=== PATIENT | female | born 1980 | race Two or more races ===

== ENCOUNTER 2024-11-21 10:35 | Emergency (ER) | payer BC, SELFPAY ==
--- NOTE | 2024-11-21 10:42 | EKG_ITS ---
[facility] Test Date: 2024-11-21 Pat Name: RENATA NULL Department: Room: - Gender: Female [employer] Supervisor: : 1980 Requested By: ED Temporary Provider Order Number: [id number] Reading MD: ED Temporary Provider Measurements Intervals [place] Rate: 84 P: 43 MT: 136 QRS: 37 QRSD: 81 T: 32 QT: 323 QTc: 382 Interpretive Statements SINUS RHYTHM NONSPECIFIC T-WAVE ABNORMALITY No previous ECG available for comparison /store/S0/[id number].pdf
[2024-11-21 10:49] VITALS: BP 156/104; PULSE 79; RESP 16; TEMP 37.2; O2SAT 98; BMI 27.4
--- NOTE | 2024-11-21 11:08 | XR_ITS ---
Examination: CT brain head without contrast. 2-D sagittal coronal reconstructions Date and time of exam:November 21, 2024 1207 hours INDICATIONS: Onset facial numbness today CTDI: vol (mGy):46.9 DLP: (mGycm):896 Technique: Multiple CT axial sections of the brain have been obtained, 5 mm slice thickness. Contrast has not been administered. 2-D sagittal, coronal reconstructions have been obtained Low dose protocols were performed. One or more of the following dose reduction techniques were used; automated exposure control, adjustment of the mA and/or KV according to patient size, use of iterative reconstruction technique. Findings: No significant ventricular enlargement. Intra-axial or extra-axial hemorrhage density is not seen. No mass effect or midline shift Basal cisterns are not remarkable. Fourth ventricle is midline. Cranial vault intact. Impression: Negative for acute hemorrhage, mass effect or midline shift Advise clinical correlation follow-up accordingly
--- NOTE | 2024-11-21 11:08 | XR_ITS ---
Examination: PA lateral chest 2 views TECHNIQUE: Upright PA lateral chest 2 views Date and time: November 21, 2024 1121 hours INDICATIONS: Numbness in the face 2 days FINDINGS: Normal heart size. Lungs are clear. The osseous structures are intact IMPRESSION: No active disease
--- NOTE | 2024-11-21 11:08 | PD.EDRME ---
Rapid Medical Screening Exam RME Arrival date/time: 11/21/24 10:35 43-year-old female with no known medical history presents to the emergency room with a chief complaint of numbness to her lip, lightheadedness, dizziness, chest pain and blurry vision x 2 days I have greeted and performed a focused initial assessment of this patient. A comprehensive ED assessment and evaluation of the patient, analysis of all test results, and completion of the medical decision making process will be conducted by additional ED providers. Chief Complaint: General Adult/Misc Complain Time Seen by Provider: 11/21/24 10:56 Vital signs: Vital Signs Temperature 98.9 F 11/21/24 10:49 Pulse Rate 79 11/21/24 10:49 Respiratory Rate 16 11/21/24 10:49 Blood Pressure 156/104 H 11/21/24 10:49 Pulse Oximetry (%) 98 11/21/24 10:49 Oxygen Delivery Method Room Air 11/21/24 10:49 Vital signs reviewed by provider: Yes
[2024-11-21 11:42] LABS: Basophils # (Auto) 0.1 Thou/mm3 (0.0-0.2); Basophils % (Auto) 1 % (0-2.5); Eosinophils # (Auto) 0.1 Thou/mm3 (0.0-0.5); Eosinophils % (Auto) 1 % (0-10); Hemoglobin 13.1 g/dL (12.0-16.0); Immature Granulocytes % (Auto) 0 % (0-0); Immature Granulocytes Auto 0.02 Thou/mm3 (0.00-0.00); Lymphocytes # (Auto) 2.3 Thou/mm3 (1.0-4.8); Lymphocytes % (Auto) 30 % (10-50); Mean Corpuscular HGB Conc 34.5 g/dl (31.0-37.0); Mean Corpuscular Hemoglobin 29.4 pg (25.0-35.0); Mean Corpuscular Volume 85 fL (80-100); Monocytes # (Auto) 0.6 Thou/mm3 (0.0-0.8); Monocytes % (Auto) 8 % (0-12); Neutrophils # (Auto) 4.8 Thou/mm3 (1.8-7.7); Neutrophils % (Auto) 61 % (37-80); Nucleated Red Blood Cell % 0 /100 WBC (0); Platelet Count 360 Thou/mm3 (140-440); RDW Standard Deviation 43.9 fL (36.4-46.3); Red Blood Count 4.46 Miln/mm3 (4.00-5.20); White Blood Count 7.9 Thou/mm3 (3.6-11.0)
[2024-11-21 11:59] LABS: Alanine Aminotransferase 13 U/L (10-49); Albumin/Globulin Ratio 1.5 (1.2-2.2); Alkaline Phosphatase 94 U/L (46-116); Anion Gap 8 (7-16); Aspartate Amino Transferase 21 U/L (0-34); B-Type Natriuretic Peptide < 20 pg/mL (0-100); BUN/Creatinine Ratio 16 Ratio (12-20); Bilirubin,Total 0.4 mg/dL (0.3-1.2); Blood Urea Nitrogen 14 mg/dL (9-23); Calcium 9.6 mg/dL (8.3-10.6); Calcium (Corrected) 9.6 mg/dL (8.5-10.1); Carbon Dioxide 26.1 mMol/L (20.0-31.0); Chloride 102 mMol/L (98-107); Creatinine (Component) 0.9 mg/dL (0.6-1.3); Estimated Creatinine Clearance 74.4 mL/min (>60); Globulin 3.4 gm/dL (2.3-3.5); Glucose 91 mg/dL (74-106); Osmolality,Calculated 272 (275-295); Potassium 3.8 mMol/L (3.4-5.1); Sodium 136 mMol/L (136-145); Total Protein 8.4 gm/dL (5.7-8.2); Troponin I < 0.002 ng/mL (0.0-0.045); eGFR > 60 See Note
[2024-11-21 11:59] LABS: Collection Type, Urine Clean Catch
[2024-11-21 12:13] LABS: Bilirubin,Urine Negative (Negative); Blood,Urine 2+ (Negative); Clarity,Urine Turbid (Clear/Hazy); Color,Urine Lt-Yellow (Lt Yel-Yel); Glucose, Urine Negative (Negative); Ketones,Urine Negative (Negative); Leukocyte Esterase,Urine Positive (Negative); Nitrite,Urine Positive (Negative); PH,Urine 5.5 (5.0-7.0); Protein,Urine Negative (Neg - Trace); RBC,Urine 4 /hpf (0-3); Specific Gravity,Urine 1.026 (1.001-1.035); Squamous Epithelial Cell,Urine 11 /hpf (0-5); Urobilinogen,Urine Negative mg/dL (0.0-1.0); WBC,Urine 7 /hpf (0-5)
[2024-11-21] MEDS: LORazepam 0.5 MG TABLET PO (12:36)
--- NOTE | 2024-11-21 13:28 | PD.EDADULT ---
ED General RME/HPI General Chief complaint: General Adult/Misc Complain Stated complaint: NUMBNESS TO LIPS, CHEST TIGHTNESS Time Seen by Provider: 11/21/24 10:56 Arrival date/time: 11/21/24 10:35 RME / HPI RME / HPI narrative: 43-year-old female with no known medical history presents to the emergency room with a chief complaint of numbness to her lip, lightheadedness, dizziness, chest pain and bilateral upper extremity numbness since yesterday, lasting for 1 to 2 hours, it comes and goes. Patient denies any headache. Denies any slurring speech denies any upper or lower extremity weakness. Patient is ambulatory. Denies any head trauma or fall denies any fever. Related Data Allergies Allergy/AdvReac Type Severity Reaction Status Date / Time No Known Allergies Allergy Unknown Uncoded 05/06/22 13:25 Review of Systems Review of Systems Narrative Review of Systems: Review of system reviewed and within normal limits except mentioned in HPI ED Exam Narrative Physical exam: VITAL SIGNS: Reviewed. GENERAL APPEARANCE: Alert and interactive, follows commands, no acute distress, HEAD AND FACE: Non-traumatic. ENT: PERRL, pink conjunctivitis, eyelid no trauma, Mucous membrane moist. NECK: Supple, nontender, no nuchal rigidity. CHEST: No tenderness, no crepitus, no paradoxical movement, no retractions. LUNGS: Clear, well ventilated, symmetric, no rales, no wheezing, no ronchi, no stridor, good breath sounds bilaterally. HEART: Regular rate, regular rhythm, no murmur, no gallops. ABDOMEN: Soft, positive bowel sounds, nondistended, no guarding, nontender, no rebound, no masses, RECTAL: Deferred. GENITAL: Deferred. NEUROLOGICAL: Gross motor function intact sensory function intact, Appropriate for age. MUSCULOSKELETAL: low back nontender, full range of motion. EXTREMITIES: Nontender, full range of motion. SKIN: Color pink, dry, no rash, no lacerations, no abrasions, no contusions. LYMPHATICS: Deferred. Course Quality Measures none Orders Category Date Time Status EKG (ED ONLY) *Do not use* NOW Care 11/21/24 10:[address] head/brain wo con Stat Exams 11/21/24 11:08 Completed EKG (ED Only) Stat Exams 11/21/24 10:42 Draft XR chest 2V Stat Exams 11/21/24 11:08 Completed B-Type Natriuretic Peptide Stat Lab 11/21/24 11:16 Completed CBC Stat Lab 11/21/24 11:16 Completed Comprehensive Metabolic Panel Stat Lab 11/21/24 11:16 Completed Magnesium Stat Lab 11/21/24 11:16 Completed Troponin I Stat Lab 11/21/24 11:16 Completed Urinalysis Stat Lab 11/21/24 11:45 Completed LORazepam [Ativan] Med 11/21/24 12:03 Discontinued 0.5 mg PO X1 ONE Vital Signs Vital signs: Vital Signs Temperature 98.9 F 11/21/24 10:49 Pulse Rate 79 11/21/24 10:49 Respiratory Rate 16 11/21/24 10:49 Blood Pressure 156/104 H 11/21/24 10:49 Pulse Oximetry (%) 98 11/21/24 10:49 Oxygen Delivery Method Room Air 11/21/24 10:49 Discharge Plan Plan Patient Disposition: HOME (Self Care) Discharge Disposition comment: Stable Prescriptions/Referrals Referrals: No Primary/Family,Physician [Primary Care Provider] - In 1 week Problem List Clinical Impression: Paresthesia, Anxiety Patient/Caregiver Discharge Instructions Discharge Activity: activity as tolerated Education Materials: ED Paraesthesias Additional Instructions: Thank you for the opportunity for serving you today. You are stable for discharged . You are advised to: Follow-up with your PCP in 1 to 2 days Return to ED for worsening of symptoms Print Language: [place] Stand Alone Forms: [facility]i Award Info., Patient Portal Info Letter PA/SHERRI Supervising Physician PA/SHERRI Supervising Physician: MD Dagoberto [facility] Narrative MDM hospital course: 43-year-old female with no known medical history presents to the emergency room with a chief complaint of numbness to her lip, lightheadedness, dizziness, chest pain and bilateral upper extremity numbness since yesterday, lasting for 1 to 2 hours, it comes and goes. Patient denies any headache. Denies any slurring speech denies any upper or lower extremity weakness. Patient is ambulatory. Denies any head trauma or fall denies any fever. Patient's workup today all came back normal including CT scan of the head chest x-ray EKG troponin CBC and CMP. Patient's urinalysis is contaminated. Patient's symptoms could be related to paresthesia versus anxiety. Patient appears nontoxic and hemodynamically stable. Patient discharged home and instructed to follow-up with primary care provider in 24 to 48 hours. Instructed to return to the emergency department immediately if worsening of symptoms Clinical Information Provided by none Medical Records Reviewed None Meds/Rx Considered, not Ordered None Labs/Rad/Tests considered, not Ordered Describe details: None Chronic Illness/Social Conditions which may negatively complicate care or outcome(s)-explain: None or not applicable EKG EKG Interpretation narrative: EKG as interpreted by me shows normal sinus rhythm, ventricular rate of 84 bpm, no ST segment elevation depression noted. Lab Interpretation Lab(s) interpretation(s): See results MDM Medication Administration(s) Medication Administration History Discontinued Medications Lorazepam (Lorazepam 0.5 Mg Tablet) 0.5 mg PO X1 ONE Stop: 11/21/24 12:04 Last Admin: 11/21/24 12:36 Dose: 0.5 mg Documented By: BRADEN Ativan Diagnosis Differential diagnosis: Anxiety, paresthesia, chest tightness Differential dx and/or dx ruled out: Anxiety paresthesia Most likely dx, and/or detailed dx discussion: Anxiety paresthesia Dispositon Disposition: Discharge Home
== END 2024-11-21 14:55 | disposition home or self-care (01) ==
PROVIDERS: Nurse Practitioner Family; Emergency Provider Family Medicine
DX: F41.9 Anxiety disorder, unspecified (principal); R20.2 Paresthesia of skin; R20.0 Anesthesia of skin; R94.31 Abnormal electrocardiogram [ECG] [EKG]
CPT/HCPCS: 36415; 70450; 71046; 80053; 81001; 83735; 83880; 84484; 85025; 93005; 99284; A9270